=== PATIENT | male | born 1975 | race American Indian/Alaskan Native ===

== ENCOUNTER 2016-08-23 07:04 | Observation (INO) | payer BC, OTHER ==
[2016-08-23 07:12] VITALS: BMI 27.4
[2016-08-23 07:13] VITALS: BP 144/85; PULSE 68; RESP 18; TEMP 98.1; O2SAT 98
[2016-08-23] MEDS ORDERED: Sodium Chloride 0.9% 1,000 ML IV STA (07:36)
[2016-08-23] MEDS ORDERED: Iohexol 240 (50 ml) PO ONE (07:46)
[2016-08-23] MEDS ORDERED: Iohexol 240 (50 ml) ONE (08:03)
[2016-08-23 08:28] LABS: BASO # 0.1 K/uL (0.0-0.2); BASO % 0.5 % (0.0-2.0); EOS # 0.1 K/uL (0.0-0.7); EOS % 0.4 % (0.0-4.0); HEMOGLOBIN 14.6 g/dL (12.0-18.0); LYMPH % 10.3 % (20.0-40.0); MEAN CORPUSCULAR HEMOGLOBIN 28.4 pg (27.0-31.0); MEAN CORPUSCULAR HGB CONC 33.5 g/dL (33.0-37.0); MEAN PLATELET VOLUME 8.6 fl (7.2-11.7); MONO # 1.2 K/uL (0.0-0.8); MONO % 6.1 % (0.0-10.0); NEUT # 15.9 K/uL (1.8-7.0); NEUT % 82.7 % (50.0-75.0); RBC 5.13 Mil/uL (4.40-5.90); RED CELL DISTRIBUTION WIDTH 14.4 % (11.5-14.5); WHITE BLOOD COUNT 19.2 K/uL (4.8-10.8)
[2016-08-23 08:34] LABS: ALB/GLOB RATIO 1.5 (1.0-2.1); ALBUMIN 4.7 g/dL (3.5-5.0); ALT/SGPT 72 U/L (21-72); AST/SGOT 39 U/L (17-59); BLOOD UREA NITROGEN 22 mg/dl (9-20); GFR AFRICAN-AMERICAN > 60; GFR NON-AFRICAN AMERICAN > 60; LIPASE 111 U/L (23-300)
--- NOTE | 2016-08-23 08:34 | ED PDOC ---
HPI: Abdomen <Fei Thurston M - Last Filed: 08/23/16 11:55> Chief Complaint (Provider): Abdominal Pain History Per: Patient History/Exam Limitations: no limitations Onset/Duration Of Symptoms: Hrs Current Symptoms Are (Timing): Still Present <Radhika Sanderson Y - Last Filed: 08/23/16 13:41> Time Seen by Provider: 08/23/16 07:12 Chief Complaint (Nursing): Abdominal Pain Additional Complaint(s): 41 y/o male presents to the emergency department with a complaint of diffuse abdominal discomfort since this morning, 08/23/2016. Associated with diarrhea and nausea. Patient states these symptoms occur every 3 months. Denies vomiting and fever. PMD: None (Maria ERadhika Melida) Past Medical History <Fei Thurston M - Last Filed: 08/23/16 11:55> Reviewed: Historical Data, Nursing Documentation, Vital Signs - Medical History PMH: No Chronic Diseases - Surgical History Other surgeries: Left arm surgery - Family History Family History: States: Unknown Family Hx - Social History Current smoker - smoking cessation education provided: Yes (Heavy Smoker >10 Cigarettes Daily) Alcohol: Occasional Drugs: Denies - Immunization History Hx Tetanus Toxoid Vaccination: No Hx Influenza Vaccination: Yes Hx Pneumococcal Vaccination: No <Radhika Sanderson Y - Last Filed: 08/23/16 13:41> Vital Signs: Last Vital Signs Temp 98.1 F 08/23/16 07:12 Pulse 68 08/23/16 07:12 Resp 18 08/23/16 07:12 BP 144/85 08/23/16 07:12 Pulse Ox 98 08/23/16 11:55 - Home Medications Home Medications: Ambulatory Orders Medication Instructions Recorded Metronidazole [Flagyl] 500 mg PO TID #21 tablet 06/07/16 traMADol [Ultram] 50 mg PO TID #15 tab 06/07/16 - Allergies Allergies/Adverse Reactions: Allergies Allergy/AdvReac Type Severity Reaction Status Date / Time No Known Allergies Allergy Verified 08/23/16 07:17 Review of Systems ROS Statement: Except As Marked, All Systems Reviewed And Found Negative Constitutional: Negative for: Fever Gastrointestinal: Positive for: Nausea, Abdominal Pain, Diarrhea. Negative for : Vomiting <Maria ESatishdakota Y - Last Filed: 08/23/16 13:41> Physical Exam - Reviewed Nursing Documentation Reviewed: Yes Vital Signs Reviewed: Yes - Physical Exam Appears: Positive for: Non-toxic, No Acute Distress Head Exam: Positive for: ATRAUMATIC, NORMAL INSPECTION, NORMOCEPHALIC Skin: Positive for: Normal Color, Warm, Dry Neck: Positive for: Normal, Supple Cardiovascular/Chest: Positive for: Regular Rate, Rhythm. Negative for: Murmur Respiratory: Positive for: Normal Breath Sounds. Negative for: Accessory Muscle Use, Respiratory Distress Gastrointestinal/Abdominal: Positive for: Soft, Tenderness (Diffuse abdominal tenderness). Negative for: Normal Exam Neurologic/Psych: Positive for: Alert, Oriented <Radhika Sanderson Y - Last Filed: 08/23/16 13:41> - Laboratory Results Result Diagrams: 08/23/16 08:16 08/23/16 08:16 <Fei Thurston - Last Filed: 08/23/16 11:55> - Laboratory Results Result Diagrams: 08/23/16 08:16 08/23/16 08:16 - ECG O2 Sat by Pulse Oximetry: 98 (RA) Pulse Ox Interpretation: Normal <Radhika Sanderson Y - Last Filed: 08/23/16 13:41> Medical Decision Making <Fei Thurston M - Last Filed: 08/23/16 11:55> <Radhika Sanderson Y - Last Filed: 08/23/16 13:41> Medical Decision Making: Time: 07:47 Initial impression: Abdominal Pain Initial plan: --Abd pelvis PO & IV contrast CT --Pepcid 20 mg IVP --Iohexol 50 mg PO --Sodium Chloride 0.9% 1,000 ml IV 150 mls/hr --Zofran INJ 4 mg IV --Admit to hospital routine: Observation for abdominal pain under the care of Dr. Sanderson. Time: 11:12 Abdomen/Pelvis CT FINDINGS: LOWER THORAX: Unremarkable. LIVER: Unremarkable. No gross lesion or ductal dilatation. GALLBLADDER AND BILE DUCTS: Unremarkable. PANCREAS: Unremarkable. No gross lesion or ductal dilatation. SPLEEN: Unremarkable. ADRENALS: Unremarkable. No mass. KIDNEYS AND URETERS: Unremarkable. No hydronephrosis. No solid mass. VASCULATURE: Unremarkable. No aortic aneurysm. BOWEL: No bowel obstruction. Wall suboptimally evaluated due to lack of opacification with oral contrast. Oral contrast is seen largely within the colon at the time of evaluation. Collapsed stomach. APPENDIX: Normal appendix. PERITONEUM: Unremarkable. No free fluid. No free air. LYMPH NODES: Unremarkable. No enlarged lymph nodes. BLADDER: Unremarkable. REPRODUCTIVE: Unremarkable. BONES: No acute fracture. OTHER FINDINGS: None. IMPRESSION: No bowel obstruction. Suboptimal evaluation of the small bowel due to lack of oral contrast within it. Oral contrast is mostly seen in the colon at the time of evaluation. Other findings as above. Time: 11:45 Upon provider reevaluation patient is feeling better, is medically stable, and requires no further treatment in the ED at this time. pt tolerated po. instructed pt that needs to follow up iwth a GI doctor since this is the second time it occured. given pt referral he is agreeable to plan. patient will be discharged Counseling was provided and all questions were answered regarding diagnosis and need for follow up with referred clinic. There is agreement to discharge plan. Return if symptoms persist or worsen. Clinical Impression: Abdominal discomfort Scribe Attestation: Documented by Yaritza Preston, acting as a scribe for Radhika Sanderson MD. Provider Scribe Attestation: All medical record entries made by the Scribe were at my direction and personally dictated by me. I have reviewed the chart and agree that the record accurately reflects my personal performance of the history, physical exam, medical decision making, and the department course for this patient. I have also personally directed, reviewed, and agree with the discharge instructions and disposition. (Radhika Sanderson) ED OBSERVATION <Fei Thurston - Last Filed: 08/23/16 11:55> Date of observation admission: 08/23/16 Time of observation admission: 07:47 <Radhika Sanderson - Last Filed: 08/23/16 13:41> - Observation admission statement Patient is being placed in observation because:: for diffuse abdominal pain (Radhika Sanderson) - Goals of Observation Goals of observation are:: pending CT results. (Radhika Sanderson) - Progress Note Progress Note: 08/23/16 08:16 --COMP Metabolic Panel STAT --Lipase STAT --CBC w/ differential --Urine Culture --Urinalysis --Reassessment (Radhika Sanderson) Disposition <Fei Thurston - Last Filed: 08/23/16 11:55> - Patient ED Disposition Is Patient to be Admitted: No Counseled Patient/Family Regarding: Diagnosis - Disposition Disposition: Routine/Home Disposition Time: 11:45 <Radhika Sanderson - Last Filed: 08/23/16 13:41> - Clinical Impression Clinical Impression: Abdominal discomfort - Disposition Condition: IMPROVED
[2016-08-23] MEDS ORDERED: Sodium Chloride 0.9% 50 ML IV ONE (10:07)
[2016-08-23] MEDS ORDERED: Iohexol 300 100 ML IJ ONE (10:07)
[2016-08-23 10:11] LABS: URINE BILIRUBIN NEGATIVE (NEGATIVE); URINE BLOOD NEGATIVE (NEGATIVE); URINE CLARITY CLEAR (Clear); URINE COLOR YELLOW (YELLOW); URINE GLUCOSE (UA) NEG (Normal); URINE LEUKOCYTE ESTERASE NEG Leu/uL (Negative); URINE NITRATE NEGATIVE (NEGATIVE); URINE PROTEIN NEGATIVE (NEGATIVE); URINE UROBILINOGEN 0.2-1.0 mg/dL (0.2-1.0)
--- NOTE | 2016-08-23 11:13 | CT ---
PROCEDURE: CT Abdomen and Pelvis with contrast HISTORY: diffuse abdominal pain COMPARISON: None. TECHNIQUE: Contrast dose: 95 mL of Omnipaque 300 Radiation dose: Total exam DLP = 804.35 mGy-cm. This CT exam was performed using one or more of the following dose reduction techniques: Automated exposure control, adjustment of the mA and/or kV according to patient size, and/or use of iterative reconstruction technique. FINDINGS: LOWER THORAX: Unremarkable. LIVER: Unremarkable. No gross lesion or ductal dilatation. GALLBLADDER AND BILE DUCTS: Unremarkable. PANCREAS: Unremarkable. No gross lesion or ductal dilatation. SPLEEN: Unremarkable. ADRENALS: Unremarkable. No mass. KIDNEYS AND URETERS: Unremarkable. No hydronephrosis. No solid mass. VASCULATURE: Unremarkable. No aortic aneurysm. BOWEL: No bowel obstruction. Wall suboptimally evaluated due to lack of opacification with oral contrast. Oral contrast is seen largely within the colon at the time of evaluation. Collapsed stomach. APPENDIX: Normal appendix. PERITONEUM: Unremarkable. No free fluid. No free air. LYMPH NODES: Unremarkable. No enlarged lymph nodes. BLADDER: Unremarkable. REPRODUCTIVE: Unremarkable. BONES: No acute fracture. OTHER FINDINGS: None. IMPRESSION: No bowel obstruction. Suboptimal evaluation of the small bowel due to lack of oral contrast within it. Oral contrast is mostly seen in the colon at the time of evaluation. Other findings as above.
== END 2016-08-23 13:44 | disposition home or self-care (01) ==
LOC: H.ER 07:04 → H.EROBSV 07:46
PROVIDERS: ADMIT Emergency Medicine; ATTEND Emergency Medicine
DX: R10.9 Unspecified abdominal pain (principal); R19.7 Diarrhea, unspecified; R11.0 Nausea
CPT/HCPCS: 36415; 74177; 80053; 81003; 83690; 85025; 87086; 96374; 99282; G0378; J2405; Q9966; Q9967

== ENCOUNTER 2017-06-04 11:26 | Emergency (ER) | payer BC, OTHER ==
[2017-06-04 11:26] VITALS: BMI 27.4
[2017-06-04 11:46] VITALS: O2SAT 98
[2017-06-04] MEDS ORDERED: Sodium Chloride 0.9% 1,000 ML IV STA (12:15)
--- NOTE | 2017-06-04 12:25 | ED PDOC ---
HPI: General Adult Time Seen by Provider: 06/04/17 12:22 Chief Complaint (Nursing): Chest Pain Chief Complaint (Provider): palpitations History Per: Patient (42 y/o male here for sweating/palpitations/malaise noted after stopping percocet yesterday. States he has had recent sx for removal of radial head left elbow 2 weeks ago and was prescribed heavy doses of percocet. Notes he has h/o chronic use of percocet for years secondary to ongoing pain in left elbow in past. States pain in elbow has improved since surgery.) Past Medical History Reviewed: Historical Data, Nursing Documentation, Vital Signs Vital Signs: Last Vital Signs Temp 99.4 F 06/04/17 14:39 Pulse 90 06/04/17 14:39 Resp 19 06/04/17 14:39 BP 115/74 06/04/17 14:39 Pulse Ox 98 06/04/17 14:39 - Family History Family History: States: Unknown Family Hx - Immunization History Hx Tetanus Toxoid Vaccination: Yes Hx Influenza Vaccination: Yes Hx Pneumococcal Vaccination: No - Home Medications Home Medications: Ambulatory Orders Medication Instructions Recorded Ondansetron ODT [Zofran ODT] 4 mg PO Q8 PRN #10 odt 06/04/17 Oxycodone HCl [Oxycontin] 1 tab PO PRN PRN 06/04/17 Oxycodone HCl/Acetaminophen 1 tab PO PRN PRN 06/04/17 [Percocet 10-325 mg Tablet] cloNIDine [Catapres] 0.1 mg PO Q8 PRN #4 tab 06/04/17 oxyCODONE [oxyCODONE Immediate 1 tab PO PRN PRN 06/04/17 Release Tab] - Allergies Allergies/Adverse Reactions: Allergies Allergy/AdvReac Type Severity Reaction Status Date / Time No Known Allergies Allergy Verified 06/04/17 11:51 Review of Systems ROS Statement: Except As Marked, All Systems Reviewed And Found Negative Physical Exam - Reviewed Nursing Documentation Reviewed: Yes Vital Signs Reviewed: Yes - Physical Exam Appears: Positive for: Well, Non-toxic, No Acute Distress Head Exam: Positive for: ATRAUMATIC, NORMAL INSPECTION, NORMOCEPHALIC Skin: Positive for: Normal Color, Warm, DRY Eye Exam: Positive for: EOMI, Normal appearance, PERRL ENT: Positive for: Normal ENT Inspection Neck: Positive for: Normal, Painless ROM Cardiovascular/Chest: Positive for: Regular Rate, Rhythm Respiratory: Positive for: CNT, Normal Breath Sounds Gastrointestinal/Abdominal: Positive for: Normal Exam, Soft Back: Positive for: Normal Inspection Extremity: Positive for: Normal ROM Neurologic/Psych: Positive for: Alert, Oriented - Laboratory Results Result Diagrams: 06/04/17 12:23 06/04/17 12:23 - ECG O2 Sat by Pulse Oximetry: 98 - Progress ED Course And Treament: EKG: NSR 89 PBM NO ECTOPY NO ACUTE CHANGES ZOFRAN 4MG IV CLONIDINE 0.1MG X 1 DOSE ATIVAN 0.5 MG IV X 1 DOSE Disposition - Clinical Impression Clinical Impression: Opioid withdrawal - Patient ED Disposition Is Patient to be Admitted: No - Disposition Referrals: [facility] [Outside] Disposition: Routine/Home Disposition Time: 14:35 Condition: IMPROVED Prescriptions: cloNIDine [Catapres] 0.1 mg PO Q8 PRN #4 tab PRN Reason: Agitation Ondansetron ODT [Zofran ODT] 4 mg PO Q8 PRN #10 odt PRN Reason: Nausea/Vomiting Instructions: Prescription Drug Withdrawal (DC) Forms: [employer] (Swiss)
[2017-06-04 12:35] LABS: BASO # 0.1 K/uL (0.0-0.2); EOS % 0.3 % (0.0-4.0); HEMOGLOBIN 15.2 g/dL (12.0-18.0); LYMPH # 2.5 K/uL (1.0-4.3); LYMPH % 19.3 % (20.0-40.0); MEAN CELL VOLUME 86.2 fl (80.0-94.0); MEAN CORPUSCULAR HEMOGLOBIN 29.2 pg (27.0-31.0); MEAN CORPUSCULAR HGB CONC 33.9 g/dL (33.0-37.0); MEAN PLATELET VOLUME 8.6 fl (7.2-11.7); MONO # 0.8 K/uL (0.0-0.8); NEUT # 9.3 K/uL (1.8-7.0); NEUT % 73.4 % (50.0-75.0); RBC 5.19 Mil/uL (4.40-5.90); RED CELL DISTRIBUTION WIDTH 14.8 % (11.5-14.5); WHITE BLOOD COUNT 12.7 K/uL (4.8-10.8)
[2017-06-04 12:40] LABS: BLOOD UREA NITROGEN 18 mg/dl (9-20); CALCIUM 10.1 mg/dL (8.4-10.2); GFR AFRICAN-AMERICAN > 60; GFR NON-AFRICAN AMERICAN > 60
[2017-06-04 14:40] VITALS: BP 115/74; PULSE 90; RESP 19; TEMP 99.4
--- NOTE | 2017-06-05 08:17 | CARD ---
APPROVED REPORT EKG Measurement Heart [id number] <Conclusion> Normal sinus rhythm Normal ECG
== END 2017-06-04 15:03 | disposition home or self-care (01) ==
LOC: H.ER 11:26
DX: F11.23 Opioid dependence with withdrawal (principal); R00.2 Palpitations
CPT/HCPCS: 80048; 83735; 84484; 85025; 93005; 96361; 96374; 96375; 99284; J2060; J2405; J7040

== ENCOUNTER 2018-01-28 17:30 | Emergency (ER) | payer SELFPAY ==
[2018-01-28 17:30] VITALS: BMI 27.4
[2018-01-28 17:48] VITALS: RESP 18
[2018-01-28 19:02] LABS: VENOUS BLOOD GAS PCO2 44 mmHg (40-60); VENOUS BLOOD GAS PO2 71 mm/Hg (30-55); VENOUS BLOOD PH 7.44 (7.32-7.43)
[2018-01-28 19:06] LABS: BASO % 0.3 % (0.0-2.0); EOS # 0.1 K/uL (0.0-0.7); EOS % 0.7 % (0.0-4.0); HEMOGLOBIN 13.8 g/dL (12.0-18.0); LYMPH # 3.3 K/uL (1.0-4.3); LYMPH % 23.7 % (20.0-40.0); MEAN CORPUSCULAR HGB CONC 32.6 g/dL (33.0-37.0); MEAN PLATELET VOLUME 8.4 fl (7.2-11.7); MONO % 7.1 % (0.0-10.0); NEUT # 9.6 K/uL (1.8-7.0); NEUT % 68.2 % (50.0-75.0); NRBC % 0.2 % (0.0-0.0); RBC 4.76 Mil/uL (4.40-5.90); WHITE BLOOD COUNT 14.1 K/uL (4.8-10.8)
[2018-01-28 19:07] LABS: URINE BACTERIA RARE (<OCC); URINE BILIRUBIN NEGATIVE (NEGATIVE); URINE BLOOD NEGATIVE (NEGATIVE); URINE CLARITY SLIGHTY-CLOUDY (Clear); URINE COLOR YELLOW (YELLOW); URINE GLUCOSE (UA) NEG (NEGATIVE); URINE LEUKOCYTE ESTERASE NEG Leu/uL (Negative); URINE PROTEIN NEGATIVE (NEGATIVE); URINE UROBILINOGEN 0.2-1.0 mg/dL (0.2-1.0)
[2018-01-28 19:13] LABS: ALB/GLOB RATIO 1.1 (1.0-2.1); ALBUMIN 3.9 g/dL (3.5-5.0); ALT/SGPT 53 U/L (21-72); AST/SGOT 38 U/L (17-59); BLOOD UREA NITROGEN 17 mg/dl (9-20); GFR NON-AFRICAN AMERICAN > 60; LIPASE 69 U/L (23-300)
--- NOTE | 2018-01-28 19:17 | ED PDOC ---
Syncope/Near Syncope/Dizziness Time Seen by Provider: 01/28/18 18:28 Chief Complaint (Nursing): Dizziness/Lightheaded Chief Complaint (Provider): Dizziness/Lightheaded History Per: Patient History/Exam Limitations: no limitations Onset/Duration Of Symptoms: Days (x3 days) Additional Complaint(s): Mazin Wallace is a 43 year old male with no known past medical history, who presents to the emergency department complaining of dizziness and weakness, associated with feeling slightly off-balanced, onset x3 days ago. Patient also reported for the past x6 weeks he had night sweats and would wake up several times through out the night. He states he takes oxycodone for chronic elbow pain. Patient denies any fever, sick contact, travel or any other medication. Patient reports he has not seen his PMD in years. PMD: Agnieszka Young Past Medical History Reviewed: Historical Data, Nursing Documentation, Vital Signs Vital Signs: Last Vital Signs Temp 98.3 F 01/28/18 17:46 Pulse 110 H 01/28/18 17:46 Resp 18 01/28/18 17:46 BP 147/84 01/28/18 17:46 Pulse Ox 99 01/28/18 17:46 - Medical History PMH: No Chronic Diseases Denies: Chronic Kidney Disease - Surgical History Surgical History: No Surg Hx - Family History Family History: States: Unknown Family Hx - Social History Current smoker - smoking cessation education provided: Yes Drugs: Denies - Immunization History Hx Tetanus Toxoid Vaccination: Yes Hx Influenza Vaccination: Yes Hx Pneumococcal Vaccination: No - Home Medications Home Medications: Ambulatory Orders Medication Instructions Recorded Ondansetron ODT [Zofran ODT] 4 mg PO Q8 PRN #10 odt 06/04/17 Oxycodone HCl [Oxycontin] 1 tab PO PRN PRN 06/04/17 Oxycodone HCl/Acetaminophen 1 tab PO PRN PRN 06/04/17 [Percocet 10-325 mg Tablet] RX: cloNIDine [Catapres] 0.1 mg PO Q8 PRN #4 tab 06/04/17 RX: oxyCODONE [oxyCODONE Immediate 1 tab PO PRN PRN 06/04/17 Release Tab] Oseltamivir Phosphate [Tamiflu] 75 mg PO BID #10 capsule 01/28/18 - Allergies Allergies/Adverse Reactions: Allergies Allergy/AdvReac Type Severity Reaction Status Date / Time No Known Allergies Allergy Verified 06/04/17 11:51 Review of Systems ROS Statement: Except As Marked, All Systems Reviewed And Found Negative Constitutional: Positive for: Sweats. Negative for: Fever Neurological: Positive for: Weakness, Dizziness, Other (unsteady gait) Physical Exam - Reviewed Nursing Documentation Reviewed: Yes Vital Signs Reviewed: Yes - Physical Exam Appears: Positive for: Non-toxic, No Acute Distress Head Exam: Positive for: ATRAUMATIC, NORMOCEPHALIC Skin: Positive for: Normal Color, Warm, Dry Eye Exam: Positive for: Normal appearance, EOMI, PERRL Neck: Positive for: Normal, Painless ROM, Supple Cardiovascular/Chest: Positive for: Regular Rate, Rhythm. Negative for: Murmur Respiratory: Positive for: Normal Breath Sounds. Negative for: Respiratory Distress Gastrointestinal/Abdominal: Positive for: Normal Exam, Soft. Negative for: Tenderness Extremity: Positive for: Normal ROM. Negative for: Pedal Edema, Deformity Neurologic/Psych: Positive for: Alert, histology specialist II-XII (intact), Oriented (x3), Other (strength and sensation intact). Negative for: Motor/Sensory Deficits, Facial Droop - Laboratory Results Result Diagrams: 01/28/18 16:56 01/28/18 16:56 - ECG O2 Sat by Pulse Oximetry: 99 (RA) Pulse Ox Interpretation: Normal Medical Decision Making Medical Decision Making: Time: 18:34 A/P: Work up for dizziness, basic labs, Chest x-ray, EKG. Provider discussed the possibility of brain CT because of dizziness and instability, however patient declined CT at this point. Plan: Venous blood gas EKG cmp Lipase Troponin I CBC with differential Chest x-ray Influenza A B Urinalysis ---- Scribe Attestation: Documented by Raymond Menjivar , acting as a scribe for Melba Medrano MD. Provider Scribe Attestation: All medical record entries made by the Scribe were at my direction and personally dictated by me. I have reviewed the chart and agree that the record accurately reflects my personal performance of the history, physical exam, medical decision making, and the department course for this patient. I have also personally directed, reviewed, and agree with the discharge instructions and disposition. Disposition - Clinical Impression Clinical Impression: Influenza B - Disposition Referrals: Agnieszka Young MD [Staff Provider] - Disposition Time: 20:10 Condition: IMPROVED Additional Instructions: Take medications as prescribed. Increase rest and water while symptoms last. Take Tylenol for fever. Follow up with primary medical doctor as needed. Prescriptions: Oseltamivir Phosphate [Tamiflu] 75 mg PO BID #10 capsule Forms: [employer] (Bulgarian), [facility] ED School/Work Excuse
[2018-01-28] MEDS ORDERED: Sodium Chloride 0.9% 1,000 ML IV STA (19:26)
[2018-01-28 20:21] VITALS: BP 135/82; PULSE 80; TEMP 98; O2SAT 100
--- NOTE | 2018-01-29 09:36 | RAD ---
Date of service: 01/28/2018 HISTORY: possible admission COMPARISON: No prior. FINDINGS: LUNGS: The lungs are well inflated and clear. PLEURA: No pleural effusions or pneumothorax. CARDIOVASCULAR: The heart is normal in size. No aortic atherosclerotic calcification present. OSSEOUS STRUCTURES: Within normal limits for the patient's age. VISUALIZED UPPER ABDOMEN: Normal. OTHER FINDINGS: None. IMPRESSION: No active pulmonary disease.
== END 2018-01-28 20:22 | disposition home or self-care (01) ==
LOC: H.ER 17:30
DX: J10.1 Influenza due to other identified influenza virus with other respiratory manifestations (principal)